=== PATIENT | male | born 2000 | race Caucasian/White ===

== ENCOUNTER → 2022-02-05 | Outpatient (REF) | payer BC ==
[2022-02-05 17:49] LABS: GC DNA AMPLIFICATION NEGATIVE (NEGATIVE)
== END ==
LOC: M LAB REF 15:41
PROVIDERS: ATTEND Student in an Organized Health Care Education/Training Program
DX: J02.9 Acute pharyngitis, unspecified (principal); Z11.3 Encounter for screening for infections with a predominantly sexual mode of transmission

== ENCOUNTER 2022-02-06 08:37 | Emergency (ER) | payer BC ==
[~2022-02-06] VITALS: Ht 180.3 cm; Wt 98.7 kg
[2022-02-06] MEDS ORDERED: MORPHINE 4 MG/ML 1ML VIAL/SYRINGE IV ONE (10:45)
[2022-02-06 11:04] LABS: BASO # 0.1 10^3/uL (0.0-0.2); BASO % 0.3 % (0.0-1.0); EOS % 0.1 % (0.0-3.0); HEMATOCRIT 42.2 % (42.0-52.0); HEMOGLOBIN 14.3 g/dl (13.5-17.5); LYMPH # 1.6 10^3/uL (1.5-5.0); LYMPH % 9.2 % (24.0-44.0); MEAN CORPUSCULAR HEMOGLOBIN 30.5 pg (27.0-33.0); MEAN CORPUSCULAR HGB CONC 33.9 g/dl (32.0-36.5); MONO # 1.5 10^3/uL (0.0-0.8); MONO % 8.8 % (2.0-8.0); NEUTROPHILS # 13.8 10^3/uL (1.5-8.5); NEUTROPHILS % 80.9 % (36.0-66.0); PLATELET COUNT, AUTOMATED 230 10^3/uL (150-450); RED BLOOD COUNT 4.69 10^6/uL (4.30-6.10)
[2022-02-06 11:38] LABS: MONO REFLEX EBV COMP NEGATIVE (NEGATIVE)
[2022-02-06] MEDS ORDERED: ACETAMINOPHEN 325 MG TAB PO ONE (12:25)
[2022-02-06 12:28] VITALS: BP 136/67
[2022-02-09 16:08] LABS: EBV VIRAL CAPSID AG IgG 87.7 U/mL (0.0-17.9); EBV VIRAL CAPSID AG IgM <36.0 U/mL (0.0-35.9)
== END 2022-02-06 12:39 | disposition home or self-care (01) ==
LOC: M ED 08:37
DX: J02.9 Acute pharyngitis, unspecified (principal); F17.200 Nicotine dependence, unspecified, uncomplicated; F10.10 Alcohol abuse, uncomplicated

== ENCOUNTER 2023-02-09 22:30 | Emergency (ER) | payer BC ==
[~2023-02-09] VITALS: Ht 180.3 cm; Wt 118.1 kg
[2023-02-10] MEDS ORDERED: LIDOCAINE 2% MDV 20ML VIAL SC ONE (03:45)
[2023-02-10] MEDS ORDERED: BOOSTRIX VACCINE (TETANUS/DIPHTH/ACEL. PERTUSSIS) 0.5ML SYR IM.IMMUN ONE (04:25)
[2023-02-10] MEDS ORDERED: CEPHALEXIN 500 MG CAP PO ONE (04:25)
[2023-02-10] MEDS ORDERED: CEPH500C PO (04:27)
[2023-02-10 05:55] VITALS: BP 121/76; TEMP 97.8; O2SAT 98
== END 2023-02-10 05:57 | disposition home or self-care (01) ==
LOC: M ED 22:30
DX: S60.454A Superficial foreign body of right ring finger, initial encounter (principal); F10.10 Alcohol abuse, uncomplicated; Z79.899 Other long term (current) drug therapy